=== PATIENT | male | born 1945 | race Caucasian/White ===

== ENCOUNTER 2018-11-07 10:03 | Observation (INO) | payer OTHER, MEDICARE ==
[2018-11-07] MEDS ORDERED: Diazepam TAB(*) 5 MG PO PRN (14:01)
[2018-11-07] MEDS ORDERED: Diazepam TAB(*) 5 MG ONE (14:20)
[2018-11-07] MEDS ORDERED: ceFAZolin 2 GM in NS 100 ml - ONCE (Pharmacy Admix) IVPB ONE (14:30)
[2018-11-07] MEDS ORDERED: Naloxone* 0.4 MG/ML 1 ML VIAL ONE (14:51)
[2018-11-07] MEDS ORDERED: Lidocaine 1% INJ* 10 MG/ML 30 ML SDV ONE (14:51)
[2018-11-07] MEDS ORDERED: Flumazenil* 0.1 MG/ML 5 ML MDV ONE (14:51)
[2018-11-07] MEDS ORDERED: fentaNYL* 50 MCG/ML 2 ML VIAL (100 MCG VIAL) ONE (14:51)
[2018-11-07] MEDS ORDERED: Midazolam* 1 MG/ML 5 ML VIAL (5 MG) ONE (14:51)
[2018-11-07] MEDS ORDERED: Iohexol 300* (CONTRAST) 10 ML SDV ONE (14:52)
[2018-11-07] MEDS ORDERED: Acetaminophen TAB* 325 MG PO PRN (23:08)
[2018-11-07] MEDS ORDERED: oxyCODONE/Acetamin 5/325 MG* TAB PO PRN (23:08)
[2018-11-08] MEDS ORDERED: Levothyroxine TAB* 112 MCG TAB PO SCH (06:00)
[2018-11-08] MEDS ORDERED: Lisinopril TAB* 5 MG PO SCH (09:00)
[2018-11-08] MEDS ORDERED: chlorproMAZINE TAB* 10 MG PO SCH (09:00)
[2018-11-08] MEDS ORDERED: CMCS: Simvastatin TAB(NF) 10 MG TAB PO SCH (09:00)
[2018-11-08] MEDS ORDERED: Tamsulosin CAP* 0.4 MG PO SCH (09:00)
[2018-11-08] MEDS ORDERED: Hydrochlorothiazide TAB* 25 MG PO SCH (09:00)
[2018-11-08 09:30] VITALS: BP 126/71
--- NOTE | 2018-11-08 12:54 | DS ---
CC: Dr. Woodall* DISCHARGE SUMMARY: DATE OF ADMISSION: 11/07/18 DATE OF TENTATIVE DISCHARGE PENDING NO COMPLICATIONS: 11/08/18 PRIMARY PHYSICIAN: Dr. Woodall. PRIMARY STEAMER TENDER: Dr. Miryam Holman. ADMITTING DIAGNOSES: 1. 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 2. History of aortic stenosis. Last echocardiogram per outpatient cardiology notes was in May 2016. At that time, the patient had nhat-aa-kjbuzvhp aortic stenosis, mean gradient of 16. Aortic valve area of 1.5 cm2. 3. History of hypertension. 4. History of premature ventricular contractions. We will evaluate outpatient medications and followup to determine whether or not he would benefit from beta - blockade therapy depending upon PVC burden on followup device checks. PROCEDURES PERFORMED: The patient underwent dual-chamber pacemaker implantation by Dr. Miryam Holman 11/07/18 due to symptomatic trifascicular block with syncope. For further information, please review her procedure note. COMPLICATIONS: None. COURSE OF HOSPITAL STAY: This is a pleasant 72-year-old male patient who follows Dr. Miryam Holman of our practice due to history of syncope with trifascicular block and intermittent left bundle-branch block. He also has a notable history of mild- to-moderate aortic stenosis and hypertension. He was evaluated in our practice on 11/01/17. Given the history of 2 syncopal episodes in the setting of not occurring with a prodrome, he presented to [facility] for elective DC PPM. Prior to having procedure performed, he had basic blood work drawn on 10/30/18. At that time, white count was 5.6, hemoglobin 15 , hematocrit 44, platelets 221, sodium 139, potassium 4.3, creatinine 0.87, and LDL 116. The patient had the above-mentioned procedure. Post procedure, he was transferred and he has been monitored on telemetry. Most recent set of vital signs are temperature 98.1, pulse 61, respirations 16, oxygenation 96% on room air, blood pressure 123/68. He had urinary hesitancy postoperatively last night; however, he has been ambulating to the bathroom this morning with no complications. Chest x-ray this morning did not reveal pneumothorax. The patient had adequate lead positions noted on chest x-ray. Device check this morning revealed adequate thresholds. The patient is A-sensed, V- paced, mode DDD, underlying rhythm is sinus bradycardia at 47 beats per minute. His ventricular pace 6.2%, atrial pace 0.1%, atrial sensing threshold is 3.1 mV. Right ventricular sensing threshold is 9.3 mV. Pacing threshold in atrial lead is 0.50 V at 0.40 msec. Right ventricle pacing threshold 0.75 V at 0.40 msec. Normal device function. MVP PAV [id number]. Wound dressing was changed. There is no evidence of hematoma, erosion. Device site is nontender to palpation. Scant blood noted on dressing with 11 des in situ. The patient has been ambulating without complications. Vital signs remain stable. Thus, the patient will be discharged home on a low-cholesterol, low-fat diet. He is to follow up with Krystal Newell nurse practitioner on 11/15/18 at 1:45 p.m. Prescription for Keflex 250 mg p.o. t.i.d. was sent in to [facility] on [address]. The patient is aware that this is a limited prescription for 3 days for prophylaxis to prevent device implant infection. RESTRICTIONS: The patient is to not shower for 24 hours. Afterwards he may shower, but he is to not go in a hot tub or take a bath. He is aware to change dressing daily for the next 2 days, then he can leave open to air. He is to utilize arm sling as directed. No driving until he follows up with us in the clinic, then we will discuss driving restrictions. He is to not lift right arm overhead or lift more than 5 pounds for 1 month. He is aware not to do activities such as gardening, golfing, swimming, bowling for 1 month. He is to avoid contact sports and activities that can cause chest trauma for 6 weeks such as heavy lifting, running, etc. He should utilize the mobilizer for 3 to 4 weeks. I discussed signs and symptoms of infection such as oozing, fever, chills, swelling, or bruising at incisional site. He is aware to contact our practice if such symptoms occur. Dr. Miryam Holman has personally seen and examined the patient and agrees the above assessment and plan. BRICE RIVERA, CHIEF STRATEGY OFFICER [id number]/[facility] #: [id number] [facility]
--- NOTE | 2018-11-08 13:28 | OP ---
CC: Dr. Woodall * DATE OF OPERATION: 11/07/18 - ROOM #441 DATE OF : 41 SURGEON: Miryam Holman MD ANESTHESIA: MAC. PRE-OP DIAGNOSIS: Syncope with trifascicular block/high-degree AV block. POST-OP DIAGNOSIS: Syncope with trifascicular block/high-degree AV block. OPERATIVE PROCEDURE: Dual-chamber pacemaker implantation. ESTIMATED BLOOD LOSS: Less than 5 mL. COMPLICATIONS: None. DESCRIPTION OF PROCEDURE: The indications, risks, and benefits have been discussed with the patient in depth in the office and additionally the day of the surgery with his 's present, both were amenable to proceeding. The patient is left-handed and the right subclavian fossa was prepped and draped in the usual sterile fashion. A time-out procedure was called. The patient received a total of 5 mg of Versed and 50 mcg of fentanyl throughout the procedure in addition to 20 cc of 1% lidocaine. A 10-cc of radiopaque dye was injected in the right upper extremity outlining the right axillary and right subclavian vein on fluoroscopy. Following this, local anesthesia was given in addition to the conscious sedation and following the local anesthesia using a 10-blade knife, a 3-cm incision was made in the right subclavian fossa. Using Bovie and blunt dissection, the incision was extended to the level of the pectoralis muscle. Additional lidocaine was infused inferiorly and medially and using blunt dissection, a small pocket was fashioned. Using a modified Seldinger technique, the right subclavian vein was cannulated and using fluoroscopic guidance a guidewire inserted into the superior vena cava. The procedure was repeated with a second guidewire. Using an introducer technique, the right ventricular lead was guided in the right ventricular apex and actively fixed in place. Pacing and sensing thresholds were fair. Using the second guidewire and an introducer technique, the right atrial lead was placed in the right atrial appendage, actively fixed in place. Pacing and sensing thresholds were checked and found to be good. The decision was made to reposition the ventricular leads as the thresholds were fair, but as it was felt the patient would likely at some point end up RV pacing from high degree AV block. The lead was repositioned onto the septum with improved pacing and sensing thresholds. It should be noted that any time the ventricular lead was maneuvered, there was a significant amount of monomorphic ventricular tachycardia. Leads were then carefully positioned with extra slack for motion. The patient took deep breaths and sutured in place. The pocket was then copiously irrigated. The leads were attached to the device. The device was placed in the pocket and the incision was closed using 2 layers of resorbable suture, 2-0 followed by 4-0 followed by des and an external dressing. FINDINGS: The pacing system is an MRI compatible system. The device is a [employer] Sonotek model W1DR01, serial number [id number]. The atrial lead is a Medtronic model 5076-45, serial number [id number] and the ventricular lead is a MedAURSOS model 5076-52, serial number [id number]. Atrial sensing was 2.1 mV with atrial lead impendence of 656 ohms and an atrial pacing threshold of 1.8 V at 0.5 msec. Device measured data, R-wave sensed at 2.1 mV, atrial lead impedance 532 ohms and atrial pacing threshold 1.5 V at 0.4 msec. Right ventricle sensed R-wave is 11.2 mV, ventricular lead impendence 722 ohms and ventricular pacing threshold 0.75 V at 0.4 msec. The ventricular lead sensed R-waves of 19.2 mV with a ventricular lead impedance of 1070 ohms and a ventricular pacing threshold of 0.9 volts at 0.5 msec. The patient was hemodynamically stable throughout the procedure and in the recovery and there were no complications other than the transient V-tach with positioning of leads. [id number]/[facility] #: [id number] [facility]
== END 2018-11-08 12:55 | disposition home or self-care (01) ==
LOC: CHICARD 10:03 → MEDTELE 14:55
PROVIDERS: ADMIT Specialist; ATTEND Specialist
DX: I45.3 Trifascicular block (principal); I44.39 Other atrioventricular block; I45.10 Unspecified right bundle-branch block; I35.0 Nonrheumatic aortic (valve) stenosis; R55 Syncope and collapse; I44.0 Atrioventricular block, first degree; Z79.82 Long term (current) use of aspirin; R00.1 Bradycardia, unspecified; I10 Essential (primary) hypertension; E78.00 Pure hypercholesterolemia, unspecified; E03.9 Hypothyroidism, unspecified; N40.0 Benign prostatic hyperplasia without lower urinary tract symptoms; Z87.898 Personal history of other specified conditions; G62.9 Polyneuropathy, unspecified; R01.1 Cardiac murmur, unspecified; Z85.828 Personal history of other malignant neoplasm of skin; Z87.891 Personal history of nicotine dependence
CPT/HCPCS: 33208; 71045; 71046; 93005; 96365; 96372; 96375; 99156; 99157; A9270-GY; C1785; C1892; C1898; G0378; J0690; J2250; J2310; J3010